=== PATIENT | female | born 1965 | race Caucasian/White ===

== ENCOUNTER 2020-03-01 18:40 | Emergency (ER) | payer BC, OTHER ==
[~2020-03-01] VITALS: Ht 157.5 cm; Wt 47.2 kg
[2020-03-01 18:43] VITALS: BP_SYST 95
[2020-03-01] MEDS ORDERED: KETOROLAC TROMETHAMINE 60 MG/2 ML VIAL IM ONE (20:30)
[2020-03-01 20:50] VITALS: BP_SYST 105
== END 2020-03-01 20:50 | disposition home or self-care (01) ==
LOC: SED 18:40
DX: K62.89 Other specified diseases of anus and rectum (principal); K64.8 Other hemorrhoids
CPT/HCPCS: 96372; 99283; J1885